=== PATIENT | female | born 1955 | race Caucasian/White ===

== ENCOUNTER 2016-03-24 17:33 | Observation (INO) | payer OTHER ==
[~2016-03-24] VITALS: Ht 154.9 cm; Wt 70.0 kg
[~2016-03-24 17:33] MED LIST: CIPR500T2 PO; LISI40TA PO; PARO10TA PO; PHEN-426 PO; PREV30CA36 PO; SULF-154 PO
[2016-03-24 17:35] VITALS: BP 188/90; PULSE 67; RESP 20; TEMP 97.6; O2SAT 94
[2016-03-24] MEDS ORDERED: PREV30CA11 PO (22:49)
[2016-03-24] MEDS ORDERED: PAXI10TA2 PO (22:49)
[2016-03-24] MEDS ORDERED: LISI40TA PO (22:49)
[2016-03-24] MEDS ORDERED: ATOR20TA15 PO (22:52)
--- NOTE | 2016-03-24 23:11 | PD ---
HPI Chief Complaint: Chest Pain Time Seen by Provider: 22:56 Travel History International Travel<30 days: No Contact w/Intl Traveler<30days: No Traveled to known affect area: No History of Present Illness HPI 60yo F with PMH of HTN, HLD, cig smoker presents to the ED with c/o chest pain today. Chest pain is midsternal, hot, burning and associated with numbness in left arm. Chest pain is intermittent, lasting minutes at a time. Denies any sob, n/v, abdominal pain, fever, cough, focal weakness. Pt denies any prior similar chest pain and does not have any cardiac work up recently. States she has been under a lot of stress lately. PFSH Past Medical History Depression: Yes High Cholesterol: Yes Diminished Hearing: No GERD: Yes Hypertension: Yes ?: Not Menopausal: Yes : 1 Para: 1 Past Surgical History Surgical History: No Previous Surgery Social History Alcohol Use: Yes (OCCASIONAL) Tobacco Use: Yes (1 ppd) Substance Use: No Allergies-Medications (Allergen,Severity, Reaction): Uncoded Allergies: UNKNOWN ANTIBIOTIC (Adverse Reaction, Severe, Diarrhea, 03/24/16) Reported Meds & Prescriptions Reported Meds & Active Scripts Active Reported Atorvastatin (Atorvastatin Calcium) 20 Mg Tab 20 Mg PO HS Paxil (Paroxetine HCl) 10 Mg Tab 10 Mg PO DAILY Lisinopril 40 Mg Tab 40 Mg PO DAILY Prevacid (Lansoprazole) 30 Mg Capdr 30 Mg PO DAILY Review of Systems Except as stated in HPI: all other systems reviewed are Neg Physical Exam Narrative GENERAL: 60yo F not in distress. SKIN: Warm and dry. HEAD: Atraumatic. Normocephalic. EYES: Pupils equal and round. No scleral icterus. No injection or drainage. ENT: No nasal bleeding or discharge. Mucous membranes pink and moist. NECK: Trachea midline. No JVD. CARDIOVASCULAR: Regular rate and rhythm. No murmur appreciated. RESPIRATORY: No accessory muscle use. Clear to auscultation. Breath sounds equal bilaterally. GASTROINTESTINAL: Abdomen soft, non-tender, nondistended. No rebound tenderness or guarding. MUSCULOSKELETAL: No obvious deformities. No clubbing. No cyanosis. No edema. NEUROLOGICAL: Awake and alert. No obvious cranial nerve deficits. Motor grossly within normal limits. Normal speech. PSYCHIATRIC: Appropriate mood and affect; insight and judgment normal. Data Data Last Documented VS Vital Signs Date Time Temp Pulse Resp B/P Pulse Ox O2 Delivery O2 Flow Rate FiO2 03/24/16 23:18 16 96 Room Air 03/24/16 23:17 143/87 148/83 03/24/16 17:35 97.6 67 Orders Electrocardiogram (03/24/16 17:46) Basic Metabolic Panel (Bmp) (03/24/16 23:03) Ckmb (Isoenzyme) Profile (03/24/16 23:03) Complete Blood Count With Diff (03/24/16 23:03) Prothrombin Time / Inr (Pt) (03/24/16 23:03) Act Partial Throm Time (Ptt) (03/24/16 23:03) Troponin I (03/24/16 23:03) Chest, Single Ap (03/24/16 23:03) Ecg Monitoring (03/24/16 23:03) Bilateral Bp Monitoring (03/24/16 23:03) Iv Access Insert/Monitor (03/24/16 23:03) Oximetry (03/24/16 23:03) Oxygen Administration (03/24/16 23:03) Aspirin (Aspirin) (03/24/16 23:15) Sodium Chloride 0.9% Flush (Ns Flush) (03/24/16 23:15) CKMB (03/24/16 23:00) CKMB% (03/24/16 23:00) Admit Order (Ed Use Only) (03/25/16 00:51) Activity Bed Rest With Brp (03/25/16 00:51) Vital Signs (Adult) Q4H (03/25/16 00:51) Cardiac Rhythm .As Directed (03/25/16 00:51) ^ Notify Dr: Other .PRN (03/25/16 00:51) ^ Notify Dr. Parameters (03/25/16 00:51) Resp Oxygen Nasal Cannula (03/25/16 ) Ckmb (Isoenzyme) Profile (03/25/16 00:51) Ckmb (Isoenzyme) Profile (03/25/16 03:51) Troponin I (03/25/16 00:51) Troponin I (03/25/16 03:51) Electrocardiogram (03/25/16 00:51) Electrocardiogram (03/25/16 03:51) ^ Obtain (03/25/16 00:51) Sodium Chloride 0.9% Flush (Ns Flush) (03/25/16 01:00) Sodium Chloride 0.9% Flush (Ns Flush) (03/25/16 09:00) Merchandise Handler / Telemetry [email or web address] (03/25/16 00:51) Labs Laboratory Tests Test 03/24/16 23:00 White Blood Count 7.5 TH/MM3 Red Blood Count 4.48 MIL/MM3 Hemoglobin 13.1 GM/DL Hematocrit 38.6 % Mean Corpuscular Volume 86.1 FL Mean Corpuscular Hemoglobin 29.1 PG Mean Corpuscular Hemoglobin 33.8 % Concent Red Cell Distribution Width 14.4 % Platelet Count 246 TH/MM3 Mean Platelet Volume 9.4 FL Neutrophils (%) (Auto) 57.0 % Lymphocytes (%) (Auto) 32.9 % Monocytes (%) (Auto) 6.1 % Eosinophils (%) (Auto) 2.8 % Basophils (%) (Auto) 1.2 % Neutrophils # (Auto) 4.2 TH/MM3 Lymphocytes # (Auto) 2.4 TH/MM3 Monocytes # (Auto) 0.5 TH/MM3 Eosinophils # (Auto) 0.2 TH/MM3 Basophils # (Auto) 0.1 TH/MM3 CBC Comment DIFF FINAL Differential Comment Prothrombin Time 10.5 SEC Prothromb Time International 1.0 RATIO Ratio Activated Partial 24.3 SEC Thromboplast Time Sodium Level 146 MEQ/L Potassium Level 3.7 MEQ/L Chloride Level 110 MEQ/L Carbon Dioxide Level 30.3 MEQ/L Blood Urea Nitrogen 17 MG/DL Creatinine 0.77 MG/DL Random Glucose 91 MG/DL Calcium Level 8.6 MG/DL Anion Gap 6 MEQ/L Estimat Glomerular Filtration 77 ML/MIN Rate Total Creatine Kinase 157 U/L Creatine Kinase MB 2.4 NG/ML Troponin I LESS THAN 0.02 NG/ML MDM Medical Decision Making Medical Screen Exam Complete: Yes Emergency Medical Condition: Yes Interpretation(s) EKG: NSR 70bpm. Normal axis. No ST segment elevation or depression. Differential Diagnosis ACS vs. anxiety vs. pneumonia vs. GERD Narrative Course 60yo F with chest pain today with associated numbness of left arm. Pt does have cardiac risk factors including HTN, HLD, cig smoker. Labs reviewed, no leukocytosis. Troponin negative. CXR showed cardiomegaly, no acute cardiopulmonary disease. Pt given aspirin 325mg PO. Pt reevaluated at bedside and pain is now resolved. States chest pain is intermittent. Pt has not had recent cardiac work up. Will admit to chest pain center for serial EKG and cardiac enzyme. Pt's EKG #2 showed sinus bradycardia at 43bpm. Normal axis. I went to evaluate pt at bedside and she is sinus molly in the 50s on the monitor. She states that her heart rate is always low in the 50s. Not in any acute distress. Diagnosis Primary Impression: Chest pain Qualified Code: R07.9 - Chest pain, unspecified type Admitting Information Admitting Physician Requests: Radha Jessica DO Mar 24, 2016 23:11
[2016-03-24] MEDS ORDERED: SODIUM CHLORIDE 0.9% FLUSH 5 ML FLUSH IVF PRN (23:15)
[2016-03-24] MEDS ORDERED: ASPIRIN 325 MG TAB PO ONE (23:15)
[2016-03-24 23:17] VITALS: BP_SYST 143; BP_SYST 148; BP_DIAS 83; BP_DIAS 87
[2016-03-24 23:18] VITALS: RESP 16; O2SAT 96
--- NOTE | 2016-03-24 23:25 | RADRPT ---
EXAM DATE/TIME: 03/24/2016 23:02 [facility] COMPARISON: No previous studies available for comparison. INDICATIONS : Chest pain. MEDICAL HISTORY : None. SURGICAL HISTORY : None. ENCOUNTER: Initial ACUITY: 1 day PAIN SCORE: 5/10 LOCATION: chest FINDINGS: The cardiac silhouette is enlarged in transverse diameter. The lungs are free of acute parenchymal op acity. No effusions are identified. Osseous structures are intact. CONCLUSION: Cardiomegaly. No acute cardiopulmonary disease. Kyle Colón MD on March 24, 2016 at 23:23 Board Certified Radiologist. This report was verified electronically.
[2016-03-24 23:32] LABS: AUTOMATED NEUTROPHIL # 4.2 TH/MM3 (1.8-7.7); BASOPHIL # 0.1 TH/MM3 (0-0.2); BASOPHIL % 1.2 % (0.0-2.0); EOSINOPHIL # 0.2 TH/MM3 (0-0.4); EOSINOPHIL % 2.8 % (0.0-4.0); HEMATOCRIT 38.6 % (35.0-46.0); HEMO FLAGS DIFF FINAL; LYMPH % 32.9 % (9.0-44.0); LYMPHOCYTE # 2.4 TH/MM3 (1.0-4.8); MEAN CELL VOLUME 86.1 FL (80.0-100.0); MEAN CORPUSCULAR HEMOGLOBIN 29.1 PG (27.0-34.0); MEAN CORPUSCULAR HGB CONC 33.8 % (32.0-36.0); MONO % 6.1 % (0.0-8.0); PLATELET COUNT 246 TH/MM3 (150-450); RED BLOOD COUNT 4.48 MIL/MM3 (4.00-5.30); RED CELL DISTRIBUTION WIDTH 14.4 % (11.6-17.2); WHITE BLOOD COUNT 7.5 TH/MM3 (4.0-11.0)
[2016-03-24 23:43] LABS: APTT (PATIENT) 24.3 SEC (24.3-30.1); PROTHROMBIN TIME - PATIENT 10.5 SEC (9.8-11.6)
[2016-03-24 23:53] LABS: ANION GAP 6 MEQ/L (5-15); BICARBONATE 30.3 MEQ/L (21.0-32.0); BLOOD UREA NITROGEN 17 MG/DL (7-18); CHLORIDE 110 MEQ/L (98-107); GLOMERULAR FILTRATION RATE 77 ML/MIN (>89); POTASSIUM 3.7 MEQ/L (3.5-5.1); SODIUM (NA) 146 MEQ/L (136-145)
[2016-03-24 23:56] LABS: CREATINE KINASE 157 U/L (26-192)
[2016-03-25] VITALS (8 sets, daily range): BP systolic 124–151; BP diastolic 68–86; PULSE 46–58; RESP 18–20; TEMP 97.5–97.8; O2SAT 95–99
[2016-03-25 00:08] LABS: CKMB 2.4 NG/ML (0.5-3.6)
[2016-03-25] MEDS ORDERED: SODIUM CHLORIDE 0.9% FLUSH 5 ML FLUSH IVF PRN (01:00)
[2016-03-25 02:29] LABS: CREATINE KINASE 94 U/L (26-192)
[2016-03-25 06:40] LABS: CREATINE KINASE 90 U/L (26-192)
[2016-03-25] MEDS ORDERED: SODIUM CHLORIDE 0.9% FLUSH 5 ML FLUSH IVF SCH (09:00)
[2016-03-25] MEDS ORDERED: LISINOPRIL 20 MG TAB PO SCH (09:30)
[2016-03-25] MEDS ORDERED: PARoxetine HCL 20 MG TAB PO SCH (09:30)
[2016-03-25] MEDS ORDERED: PANTOPRAZOLE SOD 40 MG DELAYED RELEASE TAB PO SCH (09:30)
[2016-03-25] MEDS ORDERED: PILL SPLITTER OTHER PRN (09:45)
[2016-03-25] MEDS ORDERED: REGADENOSON INJ 0.4 MG/5 ML SYR ONE (11:40)
--- NOTE | 2016-03-25 11:40 | HHI.HP ---
HPI Primary Care Physician No Primary Care Physician Chief Complaint Chest pain History of Present Illness This is a 60-year-old female that presents to the ED complaining of a chest pain that began yesterday. She cannot further describe the characteristic of the chest pain or how long it lasted. She denies shortness breath nausea or diaphoresis. Patient states she's been under a lot of stress and is living in her car. She states that she has been compliant with her medications. Review of Systems General: Patient denies fevers, chills recent, and recent travel HEENT: Patient denies headache, sore throat, difficulty swallowing. Cardiovascular: Has the chest discomfort as mentioned above. Denies sensation of heart beating rapidly or irregularly. No syncope. Respiratory: Denies shortness of breath or inspirational chest discomfort. Denies coughing wheezing or hemoptysis. GI: Patient denies nausea, vomiting, diarrhea, abdominal pain, bloody stools. Musculoskeletal: Patient denies joint pain or edema. Denies calf pain or edema. Neurovascular: Patient denies numbness, tingling, weakness in extremities. Denies headache. Endocrine: Denies polyuria and polydipsia. Hematologic: Denies easy bruising. Skin: Denies rash or itching. Past Family Social History Allergies: Uncoded Allergies: UNKNOWN ANTIBIOTIC (Adverse Reaction, Severe, Diarrhea, 03/24/16) Past Medical History Hypertension, hyperlipidemia, GERD, depression, and tobacco abuse. Past Surgical History Noncontributory. Reported Medications Reported Meds & Active Scripts Active Reported Atorvastatin (Atorvastatin Calcium) 20 Mg Tab 20 Mg PO HS Paxil (Paroxetine HCl) 10 Mg Tab 10 Mg PO DAILY Lisinopril 40 Mg Tab 40 Mg PO DAILY Prevacid (Lansoprazole) 30 Mg Capdr 30 Mg PO DAILY Active Ordered Medications Current Medications Medications (Trade) Dose Ordered Sig/Juancarlos Route Start Time Stop Time Status Last Admin (NS Flush) 2 ml UNSCH PRN IVF 03/24/16 23:15 03/24/16 23:17 (NS Flush) 2 ml UNSCH PRN IVF 03/25/16 01:00 (NS Flush) 2 ml BID IVF 03/25/16 09:00 03/25/16 08:58 (Lipitor) 20 mg HS PO 03/25/16 21:00 (Prinivil) 40 mg DAILY PO 03/25/16 09:30 03/25/16 09:38 (Paxil) 10 mg DAILY PO 03/25/16 09:30 03/25/16 09:39 (Protonix) 40 mg DAILY PO 03/25/16 09:30 03/25/16 09:38 (Pill Splitter) 1 ea UNSCH PRN OTHER 03/25/16 09:45 Family History Cannot recall family history. Social History Patient continues to smoke 1 pack of cigarettes daily. Physical Exam Vital Signs Vital Signs Date Time Temp Pulse Resp B/P Pulse Ox O2 Delivery O2 Flow Rate FiO2 03/25/16 10:27 97.5 49 18 141/69 95 03/25/16 09:54 45 18 134/69 98 03/25/16 09:11 46 18 141/75 99 Room Air 03/25/16 07:30 97.8 49 18 124/68 97 Room Air 03/25/16 07:30 18 97 Room Air 03/25/16 07:30 49 18 97 03/25/16 06:10 95 03/25/16 06:00 48 18 143/81 96 Room Air 03/25/16 02:00 48 18 151/86 95 Room Air 03/25/16 00:00 58 20 136/84 97 Room Air 03/24/16 23:18 16 96 Room Air 03/24/16 23:17 143/87 148/83 03/24/16 17:35 97.6 67 20 188/90 94 Room Air Physical Exam GENERAL: This is a well-nourished, well-developed patient, in no apparent distress. Patient speaks in clear complete sentences. Patient is pleasant. HEENT: Head is atraumatic and normocephalic. Neck is supple without lymphadenopathy and trachea is midline. No JVD or carotid bruits. CARDIOVASCULAR: Regular rate and rhythm without murmurs, gallops, or rubs. RESPIRATORY: Clear to auscultation. Breath sounds equal bilaterally. No wheezes , rales, or rhonchi. Chest wall is nontender. No use of accessory muscles. GASTROINTESTINAL: Abdomen is nontender, nondistended. Abdomen soft. No obvious pulsatile mass or bruit. No CVA tenderness. Strong femoral pulses bilaterally. Normal bowel sounds in all quadrants. MUSCULOSKELETAL: Patient is moving upper and lower extremities freely. No calf tenderness or edema, no Homans sign. Strong pulses in upper and lower extremities. NEUROLOGICAL: Patient is alert and oriented. Cranial nerves 2-12 are grossly intact. No focal deficits and speech is clear. SKIN: No rash and turgor is normal. Laboratory Laboratory Tests Test 03/24/16 03/25/16 03/25/16 23:00 02:00 05:45 White Blood Count 7.5 Red Blood Count 4.48 Hemoglobin 13.1 Hematocrit 38.6 Mean Corpuscular Volume 86.1 Mean Corpuscular Hemoglobin 29.1 Mean Corpuscular Hemoglobin 33.8 Concent Red Cell Distribution Width 14.4 Platelet Count 246 Mean Platelet Volume 9.4 Neutrophils (%) (Auto) 57.0 Lymphocytes (%) (Auto) 32.9 Monocytes (%) (Auto) 6.1 Eosinophils (%) (Auto) 2.8 Basophils (%) (Auto) 1.2 Neutrophils # (Auto) 4.2 Lymphocytes # (Auto) 2.4 Monocytes # (Auto) 0.5 Eosinophils # (Auto) 0.2 Basophils # (Auto) 0.1 CBC Comment DIFF FINAL Differential Comment Prothrombin Time 10.5 Prothromb Time International 1.0 Ratio Activated Partial 24.3 Thromboplast Time Sodium Level 146 Potassium Level 3.7 Chloride Level 110 Carbon Dioxide Level 30.3 Blood Urea Nitrogen 17 Creatinine 0.77 Random Glucose 91 Calcium Level 8.6 Anion Gap 6 Estimat Glomerular Filtration 77 Rate Total Creatine Kinase 157 94 90 Creatine Kinase MB 2.4 Troponin I LESS THAN 0.02 LESS THAN 0.02 LESS THAN 0.02 Result Diagram: 03/24/16229903/24/162299 Imaging Last 24 hours Impressions Chest X-Ray 03/24/162302 Signed Impressions: Service Date/Time: March 23:02 - CONCLUSION: Cardiomegaly. No acute cardiopulmonary disease. Kyle Colón MD Course EKGs have sinus rhythm without significant ST segment depressions or elevations. Assessment and Plan Assessment and Plan * Chest pain: Patient had serial EKGs and cardiac enzymes for ruling out purposes. She has been seen by Dr. Kyle Rogers of cardiology in the chest pain center and will undergo a Lexiscan. She will be discharged home if the Lexiscan were to be nonischemic. * Hypertension: Continue current medications. * Hyperlipidemia: Continue current medications. * GERD: Continue current medication. * Tobacco abuse: Patient has been counseled on the importance of smoking cessation. Deion Crowder Mar 25, 2016 11:40
--- NOTE | 2016-03-25 12:39 | RADRPT ---
EXAM DATE/TIME: 03/25/2016 10:53 [facility] COMPARISON: CHEST SINGLE AP, March 24, 2016, 23:02. INDICATIONS : Midsternal chest pain with left arm numbness. Angina. DOSE: 27.3 mCi Tc99m Myoview at stress. 8.1 mCi Tc99m Myoview at rest. 0.4 mg Lexiscan STRESS SYMPTOMS: Dizzyness. EJECTION FRACTION: 66% MEDICAL HISTORY : Hypercholesterolemia. Hypertension. Gastroesophageal reflux disease. Smoker. SURGICAL HISTORY : None. ENCOUNTER: Initial ACUITY: 1 day PAIN SCALE: 6/10 LOCATION: Midsternal chest TECHNIQUE: The patient underwent pharmacologic stress with infusion of prescribed dose. Continuous ECG tracing was monitored during stress. Gated SPECT imaging was performed after stress and conventional SPECT i maging was performed at rest. The examination was performed on a SPECT/CT scanner, both attenuation and non-corrected datasets were reviewed. FINDINGS: DISTRIBUTION: The maximum perfused segment at stress is in the septal wall. PERFUSION STUDY: The pattern of perfusion at stress is within normal limits. There is a summed score of zero GATED STUDY: There is intact wall motion and thickening without hypokinetic or dyskinetic segments. CONCLUSION: 1. No fixed or reversible wall defects to suggest ischemia or infarction. 2. Normal wall motion and ejection fraction. RISK CATEGORY: Low (<1% Annual Mortality Rate) Keshawn Naranjo MD on March 25, 2016 at 12:33 Board Certified Radiologist. This report was verified electronically.
--- NOTE | 2016-03-25 12:58 | HHI.DCPOC ---
Discharge Care Plan Diagnosis: (1) Chest pain (2) Hypertension (3) Hyperlipidemia (4) GERD (gastroesophageal reflux disease) (5) Tobacco abuse Goals to Promote Your Health * To prevent worsening of your condition and complications * To maintain your health at the optimal level Directions to Meet Your Goals Take your medications as prescribed Follow your dietary instruction Follow activity as directed Keep your appointments as scheduled Take your immunizations and boosters as scheduled If your symptoms worsen call your PCP, if no PCP go to Urgent Care Center or Emergency Room Smoking is Dangerous to Your Health. Avoid second hand smoke Call the 24-hour hour crisis hotline for domestic abuse at Deion Crowder Mar 25, 2016 12:58
--- NOTE | 2016-03-25 14:41 | EKG ---
Date Performed: 03/25/2016 Time Performed: 02:03:02 PTAGE: 60 years EKG: SINUS BRADYCARDIA PROLONGED QT INTERVAL ABNORMAL ECG INTERPRETATION BASED ON A DEFAULT AGE OF 40 YEARS PREVIOUS TRACING : 03/24/2016 17.51 Since previous tracing, no significant change noted DOCTOR: Kyle Rogers Interpretating Date/Time 03/25/2016 14:39:59
--- NOTE | 2016-03-25 16:50 | EKG ---
Date Performed: 03/24/2016 Time Performed: 17:51:08 PTAGE: 60 years EKG: Sinus rhythm WITH SINUS ARRHYTHMIA NORMAL ECG NO PREVIOUS TRACING DOCTOR: Kyle Rogers Interpretating Date/Time 03/25/2016 16:49:02
--- NOTE | 2016-03-25 17:03 | EKG ---
Date Performed: 03/25/2016 Time Performed: 06:05:31 PTAGE: 60 years EKG: SINUS BRADYCARDIA PROLONGED QT INTERVAL ABNORMAL ECG INTERPRETATION BASED ON A DEFAULT AGE OF 40 YEARS PREVIOUS TRACING : 03/25/2016 02.03 Since previous tracing, no significant change noted DOCTOR: Kyle Rogers Interpretating Date/Time 03/25/2016 16:56:42
--- NOTE | 2016-03-25 17:17 | TR ---
Date Performed: 03/25/2016 Time Performed: 11:30:25 DOCTOR: Kyle Rogers DRUG LIST: CLINICAL HISTORY: REASON FOR TEST: Angina REASON FOR ENDING: OBSERVATION: CONCLUSION: Lexiscan stress test was performed under standard four minute protocol. Radionuclid e was injected one minute prior to ending the test. No electrocardiographic abormalities were present to suggest ischemia. Nuclear imaging and interpretation are pending. COMMENTS:
[2016-03-25] MEDS ORDERED: ATORVASTATIN 20 MG TAB PO SCH (21:00)
== END 2016-03-25 15:32 | disposition home or self-care (01) ==
LOC: NEPC 17:33 → NEDA 03-25 00:53 → NEDH 03-25 04:53 → NEPFCDU 03-25 10:04
PROVIDERS: ADMIT Internal Medicine Cardiovascular Disease; ATTEND Internal Medicine Cardiovascular Disease
DX: R07.9 Chest pain, unspecified (principal); I10 Essential (primary) hypertension; E78.5 Hyperlipidemia, unspecified; E78.00 Pure hypercholesterolemia, unspecified; K21.9 Gastro-esophageal reflux disease without esophagitis; F17.210 Nicotine dependence, cigarettes, uncomplicated
CPT/HCPCS: 71010; 78452; 80048; 82550; 82552; 84484; 85025; 85610; 85730; 93005; 93017; 99285; A9502; G0378; J2785

== ENCOUNTER 2016-05-01 16:13 | Emergency (ER) | payer OTHER ==
[~2016-05-01] VITALS: Ht 154.9 cm; Wt 72.6 kg
[~2016-05-01 16:13] MED LIST changes: +ATOR20TA15 PO; -CIPR500T2 PO; -PARO10TA PO; +PAXI10TA2 PO; -PHEN-426 PO; +PREV30CA11 PO; -PREV30CA36 PO; -SULF-154 PO
[2016-05-01 16:20] VITALS: BP 179/122; PULSE 97; RESP 16; TEMP 97.8; O2SAT 92
[2016-05-01] MEDS ORDERED: LISINOPRIL 20 MG TAB PO STA (16:41)
[2016-05-01] MEDS ORDERED: LOPERAMIDE HCL 2 MG CAP PO ONE (16:45)
--- NOTE | 2016-05-01 16:46 | PD ---
HPI Chief Complaint: GI Complaint Time Seen by Provider: 16:24 Travel History International Travel<30 days: No Contact w/Intl Traveler<30days: No Traveled to known affect area: No History of Present Illness HPI This 60-year-old female complaining of watery diarrhea. She says been going on for couple of days. She has a history of hypertension but has been out of her medication. She is currently homeless and living in her car. She has been on lisinopril 40 mg once daily. She has had a poor appetite. PFSH Past Medical History Depression: Yes High Cholesterol: Yes Diminished Hearing: No GERD: Yes Hypertension: Yes Menopausal: Yes : 1 Para: 1 Social History Alcohol Use: Yes (OCCASIONAL) Tobacco Use: Yes (1 ppd) Substance Use: No Allergies-Medications (Allergen,Severity, Reaction): Uncoded Allergies: UNKNOWN ANTIBIOTIC (Adverse Reaction, Severe, Diarrhea, 03/24/16) Reported Meds & Prescriptions Reported Meds & Active Scripts Active Lisinopril 40 Mg Tab 40 Mg PO DAILY Reported Atorvastatin (Atorvastatin Calcium) 20 Mg Tab 20 Mg PO HS Paxil (Paroxetine HCl) 10 Mg Tab 10 Mg PO DAILY Lisinopril 40 Mg Tab 40 Mg PO DAILY Prevacid (Lansoprazole) 30 Mg Capdr 30 Mg PO DAILY Review of Systems General / Constitutional: No: Fever, Chills Eyes: No: Diploplia, Blurred Vision HENT: No: Headaches, Vertigo Cardiovascular: No: Chest Pain or Discomfort, Palpitations Respiratory: No: Cough, Shortness of Breath Gastrointestinal: Positive: Nausea, Diarrhea, No: Vomiting, Abdominal Pain, Hematemesis Genitourinary: No: Urgency, Frequency Musculoskeletal: No: Myalgias, Arthralgias Physical Exam Narrative GENERAL: Well-developed female SKIN: Focused skin assessment warm/dry. HEAD: Atraumatic. Normocephalic. EYES: Pupils equal and round. No scleral icterus. No injection or drainage. ENT: No nasal bleeding or discharge. Mucous membranes pink and moist. NECK: Trachea midline. No JVD. CARDIOVASCULAR: Regular rate and rhythm. No murmur appreciated. RESPIRATORY: No accessory muscle use. Clear to auscultation. Breath sounds equal bilaterally. GASTROINTESTINAL: Abdomen soft, non-tender, nondistended. Hepatic and splenic margins not palpable. MUSCULOSKELETAL: No obvious deformities. No clubbing. No cyanosis. No edema. NEUROLOGICAL: Awake and alert. No obvious cranial nerve deficits. Motor grossly within normal limits. Normal speech. PSYCHIATRIC: Appropriate mood and affect; insight and judgment normal. Data Data Last Documented VS Vital Signs Date Time Temp Pulse Resp B/P Pulse Ox O2 Delivery O2 Flow Rate FiO2 05/01/16 18:34 80 20 148/89 97 Room Air 05/01/16 16:20 97.8 Orders Complete Blood Count With Diff (05/01/16 16:41) Lisinopril (Prinivil) (05/01/16 16:41) Loperamide (Imodium) (05/01/16 16:45) Comprehensive Metabolic Panel (05/01/16 16:41) Enteric Path (Stool) (05/01/16 16:41) Potassium Chloride (Kcl) (05/01/16 18:30) Labs Laboratory Tests Test 05/01/16 17:00 White Blood Count 7.2 TH/MM3 Red Blood Count 5.47 MIL/MM3 Hemoglobin 14.8 GM/DL Hematocrit 46.7 % Mean Corpuscular Volume 85.5 FL Mean Corpuscular Hemoglobin 27.1 PG Mean Corpuscular Hemoglobin 31.7 % Concent Red Cell Distribution Width 14.0 % Platelet Count 303 TH/MM3 Mean Platelet Volume 9.2 FL Neutrophils (%) (Auto) 60.6 % Lymphocytes (%) (Auto) 27.2 % Monocytes (%) (Auto) 7.5 % Eosinophils (%) (Auto) 3.0 % Basophils (%) (Auto) 1.7 % Neutrophils # (Auto) 4.4 TH/MM3 Lymphocytes # (Auto) 1.9 TH/MM3 Monocytes # (Auto) 0.5 TH/MM3 Eosinophils # (Auto) 0.2 TH/MM3 Basophils # (Auto) 0.1 TH/MM3 CBC Comment DIFF FINAL Differential Comment Sodium Level 144 MEQ/L Potassium Level 3.3 MEQ/L Chloride Level 107 MEQ/L Carbon Dioxide Level 29.4 MEQ/L Anion Gap 8 MEQ/L Blood Urea Nitrogen 12 MG/DL Creatinine 0.82 MG/DL Estimat Glomerular Filtration 72 ML/MIN Rate Random Glucose 97 MG/DL Calcium Level 9.2 MG/DL Total Bilirubin 0.6 MG/DL Aspartate Amino Transf 18 U/L (AST/SGOT) Alanine Aminotransferase 39 U/L (ALT/SGPT) Alkaline Phosphatase 125 U/L Total Protein 7.6 GM/DL Albumin 3.9 GM/DL MDM Medical Decision Making Medical Screen Exam Complete: Yes Emergency Medical Condition: Yes Medical Record Reviewed: Yes Differential Diagnosis Differential includes enteritis, hypertension, electrolyte imbalance Narrative Course Calcium slightly low at 3.3. This is supplemented. I will prescribe lisinopril for her to take for her high blood pressure. She was on 40 mg daily. She is stable for discharge Diagnosis Primary Impression: Enteritis Additional Impression: Hypertension Qualified Code: I10 - Essential hypertension Scripts Lisinopril 40 Mg Tab40 Mg PO DAILY #30 TAB Ref 0 Prov:Emory Hernandez MD 05/01/16 Disposition: 01 DISCHARGE HOME Condition: Stable Emory Hernandez MD May 01, 2016 16:46
[2016-05-01 17:18] LABS: AUTOMATED NEUTROPHIL # 4.4 TH/MM3 (1.8-7.7); BASOPHIL # 0.1 TH/MM3 (0-0.2); BASOPHIL % 1.7 % (0.0-2.0); EOSINOPHIL # 0.2 TH/MM3 (0-0.4); HEMATOCRIT 46.7 % (35.0-46.0); HEMO FLAGS DIFF FINAL; LYMPH % 27.2 % (9.0-44.0); LYMPHOCYTE # 1.9 TH/MM3 (1.0-4.8); MEAN CELL VOLUME 85.5 FL (80.0-100.0); MEAN CORPUSCULAR HEMOGLOBIN 27.1 PG (27.0-34.0); MEAN CORPUSCULAR HGB CONC 31.7 % (32.0-36.0); MONO % 7.5 % (0.0-8.0); NEUT % 60.6 % (16.0-70.0); PLATELET COUNT 303 TH/MM3 (150-450); RED BLOOD COUNT 5.47 MIL/MM3 (4.00-5.30); WHITE BLOOD COUNT 7.2 TH/MM3 (4.0-11.0)
[2016-05-01 17:30] LABS: CHLORIDE 107 MEQ/L (98-107); POTASSIUM 3.3 MEQ/L (3.5-5.1); SODIUM (NA) 144 MEQ/L (136-145)
[2016-05-01 17:34] LABS: ANION GAP 8 MEQ/L (5-15); BICARBONATE 29.4 MEQ/L (21.0-32.0); BLOOD UREA NITROGEN 12 MG/DL (7-18)
[2016-05-01 17:37] LABS: ALT (GPT) 39 U/L (10-53); AST (GOT) 18 U/L (15-37); GLOMERULAR FILTRATION RATE 72 ML/MIN (>89)
[2016-05-01 17:38] LABS: TOTAL BILIRUBIN ADULT 0.6 MG/DL (0.2-1.0)
[2016-05-01 17:40] LABS: ALKALINE PHOSPHATASE 125 U/L (45-117)
[2016-05-01] MEDS ORDERED: POTASSIUM CHLORIDE 20 MEQ CONTROLLED RELEASE TAB PO ONE (18:30)
[2016-05-01 18:34] VITALS: BP 148/89; PULSE 80; RESP 20; O2SAT 97
[2016-05-01] MEDS ORDERED: LISI40TA PO (18:51)
[2016-05-01 19:07] VITALS: BP 115/69; PULSE 70
== END 2016-05-01 19:28 | disposition home or self-care (01) ==
LOC: PHED 16:13
DX: K52.9 Noninfective gastroenteritis and colitis, unspecified (principal); I10 Essential (primary) hypertension; E78.00 Pure hypercholesterolemia, unspecified; F17.210 Nicotine dependence, cigarettes, uncomplicated
CPT/HCPCS: 80053; 85025; 99284

== ENCOUNTER 2016-05-12 15:02 | Emergency (ER) | payer OTHER ==
[2016-05-12 15:05] VITALS: BP 199/97; PULSE 72; RESP 18; TEMP 97.9; O2SAT 96
[2016-05-12] MEDS ORDERED: ANXIETY PO (15:18)
--- NOTE | 2016-05-12 15:48 | PD ---
HPI Chief Complaint: Psychiatric Symptoms Time Seen by Provider: 15:48 Travel History International Travel<30 days: No Contact w/Intl Traveler<30days: No Traveled to known affect area: No History of Present Illness HPI 60-year-old female with history of hypertension, anxiety, depression, presents to the emergency department under Maxwell act for psychiatric evaluation. Patient states that she is from [place] and moved to the area in February. She states she is homeless and has been living out of her car. She states she has been unable to get a job. She is hungry. She has no money. She was at the [employer] today and she had a "melt down." This resulted in police being contacted and the patient being brought to the emergency department. Patient states she is not suicidal or homicidal. She states she simply needs some food in a place to stay. PFSH Past Medical History Anxiety: Yes Depression: Yes High Cholesterol: Yes Diminished Hearing: No GERD: Yes Hypertension: Yes Menopausal: Yes : 1 Para: 1 Past Surgical History Surgical History: No Previous Surgery Social History Alcohol Use: Yes (OCCASIONAL) Tobacco Use: Yes (1 ppd) Substance Use: No Allergies-Medications (Allergen,Severity, Reaction): Uncoded Allergies: UNKNOWN ANTIBIOTIC (Adverse Reaction, Severe, Diarrhea, 03/24/16) Reported Meds & Prescriptions Reported Meds & Active Scripts Active Lisinopril 40 Mg Tab 40 Mg PO DAILY Reported [Anxiety] Unknown Dose PO TID Atorvastatin (Atorvastatin Calcium) 20 Mg Tab 20 Mg PO HS Paxil (Paroxetine HCl) 10 Mg Tab 10 Mg PO DAILY Lisinopril 40 Mg Tab 40 Mg PO DAILY Prevacid (Lansoprazole) 30 Mg Capdr 30 Mg PO DAILY Review of Systems Except as stated in HPI: all other systems reviewed are Neg Physical Exam Narrative GENERAL: Well-nourished female patient, in no acute distress SKIN: Focused skin assessment warm/dry. HEAD: Atraumatic. Normocephalic. EYES: Pupils equal and round. No scleral icterus. No injection or drainage. ENT: No nasal bleeding or discharge. Mucous membranes pink and moist. NECK: Trachea midline. No JVD. CARDIOVASCULAR: Regular rate and rhythm. No murmur appreciated. RESPIRATORY: No accessory muscle use. Clear to auscultation. Breath sounds equal bilaterally. GASTROINTESTINAL: Abdomen soft, non-tender, nondistended. Hepatic and splenic margins not palpable. MUSCULOSKELETAL: No obvious deformities. No clubbing. No cyanosis. No edema. NEUROLOGICAL: Awake and alert. No obvious cranial nerve deficits. Motor grossly within normal limits. Normal speech. . Data Data Last Documented VS Vital Signs Date Time Temp Pulse Resp B/P Pulse Ox O2 Delivery O2 Flow Rate FiO2 05/12/16 16:31 76 157/88 05/12/16 15:05 97.9 18 96 Orders Complete Blood Count With Diff (05/12/16 15:23) Psych Screen (05/12/16 15:23) Drug Screen, Random Urine (05/12/16 15:23) Basic Metabolic Panel (Bmp) (05/12/16 15:23) Urinalysis - C+S If Indicated (05/12/16 15:23) Alcohol (Ethanol) (05/12/16 15:23) Urine Culture (05/12/16 15:20) Nitrofurantoin Monohyd Macrocr (Macrobid (05/12/16 16:15) Diet Regular Basic (05/12/16 Dinner) Labs Laboratory Tests Test 05/12/16 15:20 White Blood Count 7.3 TH/MM3 Red Blood Count 5.02 MIL/MM3 Hemoglobin 14.1 GM/DL Hematocrit 42.6 % Mean Corpuscular Volume 84.9 FL Mean Corpuscular Hemoglobin 28.2 PG Mean Corpuscular Hemoglobin 33.2 % Concent Red Cell Distribution Width 14.3 % Platelet Count 245 TH/MM3 Mean Platelet Volume 9.1 FL Neutrophils (%) (Auto) 68.3 % Lymphocytes (%) (Auto) 22.0 % Monocytes (%) (Auto) 6.3 % Eosinophils (%) (Auto) 2.9 % Basophils (%) (Auto) 0.5 % Neutrophils # (Auto) 5.0 TH/MM3 Lymphocytes # (Auto) 1.6 TH/MM3 Monocytes # (Auto) 0.5 TH/MM3 Eosinophils # (Auto) 0.2 TH/MM3 Basophils # (Auto) 0.0 TH/MM3 CBC Comment DIFF FINAL Differential Comment Urine Color YELLOW Urine Turbidity HAZY Urine pH 5.5 Urine Specific [place] 1.024 Urine Protein TRACE mg/dL Urine Glucose (UA) NEG mg/dL Urine Ketones NEG mg/dL Urine Occult Blood SMALL Urine Nitrite NEG Urine Bilirubin NEG Urine Urobilinogen LESS THAN 2.0 MG/DL Urine Leukocyte Esterase MOD Urine RBC 5 /hpf Urine WBC 16 /hpf Urine Squamous Epithelial 4 /hpf Cells Urine Bacteria MANY /hpf Urine Mucus MOD /lpf Microscopic Urinalysis Comment CULTURE INDICATED Sodium Level 143 MEQ/L Potassium Level 3.8 MEQ/L Chloride Level 110 MEQ/L Carbon Dioxide Level 25.3 MEQ/L Anion Gap 8 MEQ/L Blood Urea Nitrogen 11 MG/DL Creatinine 0.85 MG/DL Estimat Glomerular Filtration 69 ML/MIN Rate Random Glucose 110 MG/DL Calcium Level 9.6 MG/DL Urine Opiates Screen NEG Urine Barbiturates Screen NEG Urine Amphetamines Screen NEG Urine Benzodiazepines Screen NEG Urine Cocaine Screen NEG Urine Cannabinoids Screen NEG Ethyl Alcohol Level LESS THAN 3 MG/DL MDM Medical Decision Making Medical Screen Exam Complete: Yes Emergency Medical Condition: Yes Medical Record Reviewed: Yes Differential Diagnosis Mood disorder versus personality disorder versus adjustment reaction disorder Narrative Course 60-year-old female presents to emergency department for evaluation under a Maxwell act. Patient appears without distress. CBC and BMP are without acute concern. Toxicology is negative. EtOH is less than 3. Urinalysis is hazy with small occult blood, moderate leukocyte esterase, 5 RBC, 16 WBC, many bacteria, moderate mucus. Culture is indicated. Patient is given Macrobid and will be ordered this twice a day. She is medically cleared to undergo psychiatric screening for further evaluation and disposition. Mental health screening discussed with the patient. Psychiatric screen ordered. Diagnosis Primary Impression: Adjustment reaction with anxiety and depression Condition: Stable VenkateshDena MCNEILL May 12, 2016 15:48
[2016-05-12 15:52] LABS: BASOPHIL % 0.5 % (0.0-2.0); EOSINOPHIL # 0.2 TH/MM3 (0-0.4); EOSINOPHIL % 2.9 % (0.0-4.0); HEMATOCRIT 42.6 % (35.0-46.0); HEMO FLAGS DIFF FINAL; LYMPHOCYTE # 1.6 TH/MM3 (1.0-4.8); MEAN CELL VOLUME 84.9 FL (80.0-100.0); MEAN CORPUSCULAR HEMOGLOBIN 28.2 PG (27.0-34.0); MEAN CORPUSCULAR HGB CONC 33.2 % (32.0-36.0); MONO % 6.3 % (0.0-8.0); NEUT % 68.3 % (16.0-70.0); PLATELET COUNT 245 TH/MM3 (150-450); RED BLOOD COUNT 5.02 MIL/MM3 (4.00-5.30); RED CELL DISTRIBUTION WIDTH 14.3 % (11.6-17.2); WHITE BLOOD COUNT 7.3 TH/MM3 (4.0-11.0)
[2016-05-12 15:56] LABS: BACTERIA, URINE MANY /hpf; BLOOD, URINE SMALL (NEG); COMMENT (UR) CULTURE INDICATED; CULTURE IF INDICATED CULTURE INDICATED; GLUCOSE,URINE NEG (NEG); KETONE, URINE NEG (NEG); MUCUS URINE MOD /lpf (OCC); NITRITE,URINE NEG (NEG); PH, URINE 5.5 (5.0-8.5); SQUAMOUS EPITHELIAL CELL URINE 4 /hpf (0-5); URINE COLOR YELLOW (YELLW/STRAW)
[2016-05-12 15:58] LABS: AMPHETAMINE, URINE NEG (NEG); BARBITURATES, URINE NEG (NEG); COCAINE, URINE NEG (NEG)
[2016-05-12 16:09] LABS: ANION GAP 8 MEQ/L (5-15); BICARBONATE 25.3 MEQ/L (21.0-32.0); BLOOD UREA NITROGEN 11 MG/DL (7-18); CHLORIDE 110 MEQ/L (98-107); GLOMERULAR FILTRATION RATE 69 ML/MIN (>89); POTASSIUM 3.8 MEQ/L (3.5-5.1); SODIUM (NA) 143 MEQ/L (136-145)
[2016-05-12] MEDS ORDERED: NITROFURANTOIN MONOHYD MACROCR 100 MG CAP PO ONE (16:15)
[2016-05-12 16:31] VITALS: BP 157/88; PULSE 76
[2016-05-12 17:00] VITALS: BP 180/94; PULSE 50; RESP 16; O2SAT 98
[2016-05-12 22:07] VITALS: BP 130/75; PULSE 56; RESP 18
[2016-05-13 02:09] VITALS: BP 125/61; PULSE 59; RESP 18; O2SAT 97
[2016-05-13 06:14] VITALS: BP 155/70; PULSE 50; RESP 17; O2SAT 96
--- NOTE | 2016-05-13 13:11 | PD.CONS ---
Provisional Diagnosis Admission Date [place] I. Adjustment disorder with depressed mood [place] II. Deferred [place] III. Hypertension [place] IV. Hopelessness, unemployment [place] V. 55 History of Present Illness Service Psychiatry Consult Requested By Primary Care Physician No Primary Care Physician HPI The patient is a 60-year-old woman, self reported homeless, unemployed , single, with psychiatric history of depression, anxiety, no previous psychotic hospitalizations, no previous suicidal attempts, medical history of hypertension, who presents to the emergency department under Maxwell act for psychiatric evaluation. Patient states that she is from [place] and moved to the area in February. She states she is homeless and has been living out of her car. She states she has been unable to get a job. She is hungry. She has no money. She was at the [employer] today and she had a "melt down". On psychiatric evaluation patient is calm, cooperative and pleasant, she says that she is not depressed, she doesn't feel that she wants to harm himself, but she has been sad because she hasn't been able to find a job, she has been living inside her car, she doesn't have even money for the gas. She feels better now, has the plan to call yeyo ex- asking for help. She denies suicidal and homicidal ideation, she denies visual and auditory hallucinations. Patient is fully oriented 3, she denies the use of alcohol or drugs. Review of Systems Constitutional: DENIES: Diaphoretic episodes, Fatigue, Fever, Weight gain, Weight loss, Chills, Dizziness, Change in appetite, Night Sweats Endocrine: DENIES: Abnorml menstrual pattern, Heat/cold intolerance, Polydipsia , Polyuria, Polyphagia Eyes: DENIES: Blurred vision, Diplopia, Eye inflammation, Eye pain, Vision loss , Photosensitivity, Double Vision Ears, nose, mouth, throat: DENIES: Tinnitus, Hearing loss, Vertigo, Nasal discharge, Oral lesions, Throat pain, Hoarseness, Ear Pain, Running Nose, Epistaxis, Sinus Pain, Toothache, Odynophagia Respiratory: DENIES: Apneas, Cough, Snoring, Wheezing, Hemoptysis, Sputum production, Shortness of breath Cardiovascular: DENIES: Chest pain, Palpitations, Syncope, Dyspnea on Exertion , PND, Lower Extremity Edema, Orthopnea, Claudication Gastrointestinal: DENIES: Abdominal pain, Black stools, Bloody stools, Constipation, Diarrhea, Nausea, Vomiting, Difficulty Swallowing, Anorexia Musculoskeletal: DENIES: Joint pain, Muscle aches, Stiffness, Joint Swelling, Back pain, Neck pain Integumentary: DENIES: Abnormal pigmentation, Pruritus, Rash, Nail changes, Breast masses, Breast skin changes, Nipple discharge Hematologic/lymphatic: DENIES: Bruising, Lymphadenopathy Immunologic/allergic: DENIES: Eczema, Urticaria Neurologic: DENIES: Abnormal gait, Headache, Localized weakness, Paresthesias, Seizures, Speech Problems, Tremor, Poor Balance Psychiatric: COMPLAINS OF: Depression, DENIES: Anxiety, Confusion, Mood changes, Hallucinations, Agitation, Suicidal Ideation, Homicidal Ideation, Delusions Past Family Social History Uncoded Allergies: UNKNOWN ANTIBIOTIC (Adverse Reaction, Severe, Diarrhea, 03/24/16) Active Scripts Lisinopril 40 Mg Tab40 Mg PO DAILY #30 TAB Ref 0 Prov:Emory Hernandez MD 05/01/16 Reported Medications [Anxiety] No Conflict CheckUnknown Dose PO TID 05/12/16 Atorvastatin 20 Mg Tab20 Mg PO HS #30 TAB Ref 0 03/24/16 Paroxetine (Paxil)10 Mg Tab10 Mg PO DAILY #30 TAB Ref 0 03/24/16 Lisinopril 40 Mg Tab40 Mg PO DAILY #30 TAB Ref 0 03/24/16 Lansoprazole (Prevacid)30 Mg Capdr30 Mg PO DAILY Ref 0 03/24/16 Family History She denies Social History Patient was born and raised in [place], she is homeless, just leaving inside her car, she is , but , she has 3 years of college, she is unemployed Physical Exam Vital Signs Vital Signs Date Time Temp Pulse Resp B/P Pulse Ox O2 Delivery O2 Flow Rate FiO2 05/13/16 06:14 50 17 155/70 96 Room Air 05/12/16 15:05 97.9 Mental Status Examination Appearance woman, age appearing, good hygiene, [facility], calm and cooperative Speech: Unremarkable Orientation: x3 Memory: Unremarkable Thought Process: Logical Thought Content: Unremarkable Hallucination Type: None Suicidal Ideation: No Previous Suicide Attempts: No Homicidal Ideation: No Previous Homicide Attempts: No Insight: Good Affect: Good Mood: Appropriate Motor Activity: Normal gait Assessment & Plan Problem List: (1) Adjustment reaction with anxiety and depression Assessment & Plan: On psychiatric evaluation today patient endorses sad mood, anxiety directly related with living situation, patient has been living in her car for about week now, looking unsuccessfully for a job. However, patient denies depression, anhedonia, hopelessness, helplessness, she denies suicidal or homicidal ideation, she denies visual and auditory hallucinations. Patient is future oriented, with a plan of continuing fighting for her life. At this moment the patient does not meet criteria for psychiatric admission. Extensive psycho education, motivation and support provided. Maxwell act will be lifted. ICD Code: F43.23 Assessment & Plan Estimated LOS: Sami Gates MD May 13, 2016 13:11
== END 2016-05-13 09:57 | disposition home or self-care (01) ==
LOC: NEDAMB 15:02 → NEPJ 05-13 09:57
DX: F43.23 Adjustment disorder with mixed anxiety and depressed mood (principal); F41.8 Other specified anxiety disorders; E78.00 Pure hypercholesterolemia, unspecified; I10 Essential (primary) hypertension; F17.210 Nicotine dependence, cigarettes, uncomplicated
CPT/HCPCS: 80048; 80307; 81001; 85025; 87077; 87086; 87186; 99284